=== PATIENT | female | born 1945 | race Caucasian/White ===

== ENCOUNTER 2020-08-06 14:51 | Emergency (ER) | payer OTHER ==
[~2020-08-06] VITALS: Ht 157.5 cm; Wt 61.2 kg
[2020-08-06] MEDS ORDERED: BUPROPION XL150 MG (15:26)
[2020-08-06] MEDS ORDERED: ARICEPT5 MG (15:26)
[2020-08-06] MEDS ORDERED: HORIZANT300 MG (15:26)
[2020-08-06] MEDS ORDERED: CRESTOR40 MG (15:26)
[2020-08-06] MEDS ORDERED: PLAVIX75 MG (15:27)
[2020-08-06] MEDS ORDERED: NAMENDA XR1 EACH (15:27)
[2020-08-06] MEDS ORDERED: LEVOTHYROXINE25 MCG (15:27)
[2020-08-06] MEDS ORDERED: ESCITALOPRA5 MG/5 ML (15:27)
[2020-08-06] MEDS ORDERED: COZAAR50 MG (15:27)
== END 2020-08-06 18:32 | disposition home or self-care (01) ==
LOC: ER 14:51
DX: M79.672 Pain in left foot (principal); R60.0 Localized edema

== ENCOUNTER 2020-10-02 09:17 | Emergency (ER) | payer OTHER ==
[~2020-10-02] VITALS: Ht 157.5 cm; Wt 61.2 kg
[~2020-10-02 09:17] MED LIST: ARICEPT5 MG; BUPROPION XL150 MG; COZAAR50 MG; CRESTOR40 MG; ESCITALOPRA5 MG/5 ML; HORIZANT300 MG; LEVOTHYROXINE25 MCG; NAMENDA XR1 EACH; PLAVIX75 MG
== END 2020-10-02 15:51 | disposition home or self-care (01) ==
LOC: ER 09:17
DX: K57.32 Diverticulitis of large intestine without perforation or abscess without bleeding (principal); R10.84 Generalized abdominal pain; G30.8 Other Alzheimer's disease; F02.80 Dementia in other diseases classified elsewhere, unspecified severity, without behavioral disturbance, psychotic disturbance, mood disturbance, and anxiety

== ENCOUNTER 2021-08-09 07:45 | Outpatient (CLI) | payer OTHER | END 2021-08-09 08:05 | disposition home or self-care (01) | LOC: RAD 07:45 | PROVIDERS: ATTEND Otolaryngology | DX: R13.10 Dysphagia, unspecified (principal); R22.1 Localized swelling, mass and lump, neck ==

== ENCOUNTER 2022-01-13 17:04 | Emergency (ER) | payer OTHER ==
[~2022-01-13] VITALS: Ht 152.4 cm; Wt 59.9 kg
== END 2022-01-13 21:51 | disposition home or self-care (01) ==
LOC: ER 17:04
DX: U07.1 COVID-19 (principal); G30.9 Alzheimer's disease, unspecified; F02.80 Dementia in other diseases classified elsewhere, unspecified severity, without behavioral disturbance, psychotic disturbance, mood disturbance, and anxiety; Z88.6 Allergy status to analgesic agent; Z88.0 Allergy status to penicillin; Z88.2 Allergy status to sulfonamides; I10 Essential (primary) hypertension

== ENCOUNTER 2024-06-06 13:40 | Emergency (ER) | payer OTHER ==
[~2024-06-06] VITALS: Ht 157.5 cm; Wt 65.3 kg
[~2024-06-06 13:40] MED LIST changes: +CLOPIDOGREL BIS75 MG PO; +LEVOTHYROXINE50 MCG PO
[2024-06-06] MEDS ORDERED: METHYLPREDNISOLONE SOD SUCC 125 MG VIAL IV ONE (14:45)
[2024-06-06] MEDS ORDERED: IPRATROPIUM BROMIDE 0.5 MG/2.5 ML AMPUL.NEB IH SCH (14:45)
[2024-06-06] MEDS ORDERED: LEVALBUTEROL HCL 1.25 MG/3 ML SOLUTION IH SCH (14:45)
[2024-06-06] MEDS ORDERED: GUAIFENESIN/DEXTROMETHORPHAN 100MG/10ML BLIST.PACK PO ONE ×2 (14:45→14:53)
[2024-06-06] MEDS ORDERED: IPRATROPIUM BROMIDE 0.5 MG/2.5 ML AMPUL.NEB IH ONE ×2 (14:52→15:57)
[2024-06-06] MEDS ORDERED: LEVALBUTEROL HCL 1.25 MG/3 ML SOLUTION IH ONE ×2 (14:52→15:56)
[2024-06-06] MEDS ORDERED: METHYLPREDNISOLONE SOD SUCC 125 MG VIAL ONE (14:53)
[2024-06-06 15:24] LABS: HEMATOCRIT 41.6 % (36.0-45.00); HEMOGLOBIN 13.9 g/dL (12.0-15.00); MEAN CELL VOLUME 90.3 fL (80.00-100.00); MEAN CORPUSCULAR HEMOGLOBIN 30.1 pg (27.00-32.0); MEAN CORPUSCULAR HGB CONC 33.4 g/dl (32.0-36.0); PLATELET COUNT 226 K/uL (150-450); RED BLOOD COUNT 4.61 M/uL (4.00-6.00); RED CELL DISTRIBUTION WIDTH 13.7 % (11.5-14.5)
[2024-06-06 15:50] LABS: COVID-19 AG NEGATIVE (NEGATIVE)
[2024-06-06 16:03] LABS: ALBUMIN 3.6 gm/dL (3.4-5.0); BILIRUBIN TOTAL 0.4 mg/dL (0.3-1.2); CREATININE SERUM 0.86 mg/dL (0.55-1.02); GFR 63.49; GLOBULINA 4.5 G/DL (2.4-3.5); POTASSIUM 3.56 mEq/L (3.5-5.1); TOTAL PROTEIN 8.1 gm/dL (6.4-8.2)
[2024-06-06 16:04] LABS: INFLUENZA A AG NEGATIVE (NEGATIVE)
[2024-06-06 17:01] LABS: ABG PH 7.434 (7.35-7.45); ABG pCO2 36.1 mmHg (35-45); BASE EXCESS -0.2 mmol/l; BICARBONATE 23.6 mmol/l (23-25); SaO2 94.6 %; Tco2 24.7 mmol/l
[2024-06-06] MEDS ORDERED: IPRATROPIU0.2 MG/1 M IH (17:30)
[2024-06-06] MEDS ORDERED: TUSSIN DM LIQU118 ML PO (17:30)
[2024-06-06] MEDS ORDERED: XOPENEX CO1.25 MG/0. IH (17:30)
[2024-06-06] MEDS ORDERED: ZITHROMAX500 MG PO (17:30)
[2024-06-06 17:34] LABS: allen test SATISFACTORY; mode ROOM AIR; o2 21 %; puncture site RADIAL RIGHT
== END 2024-06-06 18:00 ==
LOC: ER 13:40
PROVIDERS: General Practice
DX: R05.8 Other specified cough (principal); J00 Acute nasopharyngitis [common cold]; Z88.0 Allergy status to penicillin; Z88.2 Allergy status to sulfonamides; Z88.6 Allergy status to analgesic agent; E03.8 Other specified hypothyroidism; G30.8 Other Alzheimer's disease; F02.80 Dementia in other diseases classified elsewhere, unspecified severity, without behavioral disturbance, psychotic disturbance, mood disturbance, and anxiety; Z86.73 Personal history of transient ischemic attack (TIA), and cerebral infarction without residual deficits; J06.9 Acute upper respiratory infection, unspecified; Z20.822 Contact with and (suspected) exposure to COVID-19
CPT/HCPCS: 36415; 71046; 82803; 94640; 96365; 99284; J3490

== ENCOUNTER 2024-07-10 12:10 | Emergency (ER) | payer OTHER ==
[~2024-07-10] VITALS: Ht 157.5 cm; Wt 65.8 kg
[~2024-07-10 12:10] MED LIST changes: +IPRATROPIU0.2 MG/1 M IH; +TUSSIN DM LIQU118 ML PO; +XOPENEX CO1.25 MG/0. IH; +ZITHROMAX500 MG PO
[2024-07-10] MEDS ORDERED: METHYLPREDNISOLONE SOD SUCC 40 MG VIAL IV ONE (13:45)
[2024-07-10] MEDS ORDERED: BENZONATATE 200 MG CAPSULE PO ONE (13:45)
[2024-07-10] MEDS ORDERED: METHYLPREDNISOLONE SOD SUCC 40 MG VIAL ONE (13:54)
[2024-07-10] MEDS ORDERED: WATER FOR INJ.,BACTERIOSTATIC 30 ML VIAL IJ ONE (13:54)
[2024-07-10 15:35] LABS: BASO % 0.7 % (0.1-1.2); EOS # 0.01 (0.04-0.54); EOS % 0.1 % (0.7-7.0); HEMATOCRIT 43.2 % (34.1-44.9); HEMOGLOBIN 14.2 g/dL (11.2-15.7); LYMPH # 1.38 (1.18-3.74); LYMPH % 11.4 % (19.3-53.1); MEAN CORPUSCULAR HEMOGLOBIN 29.8 pg (25.6-32.2); MONO # 0.99 (0.24-0.82); MONO % 8.2 % (4.7-12.5); NEUT # 9.52 (1.56-6.13); PLATELET COUNT 203 K/uL (163-369); RED BLOOD COUNT 4.76 M/uL (3.93-5.22); RED CELL DISTRIBUTION WIDTH 13.3 % (11.6-14.4)
[2024-07-10 15:51] LABS: COVID-19 AG NEGATIVE (NEGATIVE)
[2024-07-10 16:08] LABS: INFLUENZA A AG POSITIVE (NEGATIVE)
[2024-07-10] MEDS ORDERED: BENZONATATE200 M1 PO (16:30)
[2024-07-10] MEDS ORDERED: OSEL75CA PO (16:30)
[2024-07-10] MEDS ORDERED: PEPCID AC20 MG PO (16:30)
== END 2024-07-10 16:36 | disposition home or self-care (01) ==
LOC: ER 14:17
PROVIDERS: General Practice
DX: J10.1 Influenza due to other identified influenza virus with other respiratory manifestations (principal); R05.8 Other specified cough; Z88.0 Allergy status to penicillin; Z88.2 Allergy status to sulfonamides; Z88.6 Allergy status to analgesic agent; G30.8 Other Alzheimer's disease; F02.80 Dementia in other diseases classified elsewhere, unspecified severity, without behavioral disturbance, psychotic disturbance, mood disturbance, and anxiety; Z86.73 Personal history of transient ischemic attack (TIA), and cerebral infarction without residual deficits; Z20.822 Contact with and (suspected) exposure to COVID-19

== ENCOUNTER 2024-07-18 10:08 | Emergency (ER) | payer OTHER ==
[~2024-07-18] VITALS: Ht 154.9 cm; Wt 73.0 kg
[~2024-07-18 10:08] MED LIST changes: +BENZONATATE200 M1 PO; +OSEL75CA PO; +PEPCID AC20 MG PO
[2024-07-18] MEDS ORDERED: GUAIFENESIN 200 MG/10 ML BLIST.PACK PO STA (11:55)
[2024-07-18] MEDS ORDERED: ALBUTEROL SULFATE 3 ML/2.5 MG AMPUL.NEB IH STA (11:55)
[2024-07-18] MEDS ORDERED: BUDESONIDE 0.5 MG/2 ML AMPUL.NEB IH STA (11:55)
[2024-07-18] MEDS ORDERED: GUAIFENESIN 200 MG/10 ML BLIST.PACK PO ONE (12:01)
[2024-07-18] MEDS ORDERED: BUDESONIDE 0.5 MG/2 ML AMPUL.NEB IH ONE (12:25)
[2024-07-18] MEDS ORDERED: ALBUTEROL SULFATE 3 ML/2.5 MG AMPUL.NEB IH ONE ×2 (12:25→15:49)
[2024-07-18 12:42] LABS: ABG PH 7.483 (7.35-7.45); ABG PO2 84.1 mmHg (80-100); ABG pCO2 33.9 mmHg (35-45); BASE EXCESS 1.9 mmol/l; BICARBONATE 24.8 mmol/l (23-25); SaO2 97.1 %; Tco2 25.9 mmol/l
[2024-07-18 12:46] LABS: allen test SATISFACTORY; mode ROOM AIR; puncture site RADIAL RIGHT
[2024-07-18 12:47] LABS: o2 21 %
[2024-07-18 12:49] LABS: BASO % 0.6 % (0.1-1.2); EOS % 1.2 % (0.7-7.0); HEMATOCRIT 38.7 % (34.1-44.9); HEMOGLOBIN 12.8 g/dL (11.2-15.7); LYMPH # 2.78 (1.18-3.74); LYMPH % 32.4 % (19.3-53.1); MEAN CORPUSCULAR HEMOGLOBIN 29.3 pg (25.6-32.2); MONO # 0.61 (0.24-0.82); MONO % 7.1 % (4.7-12.5); NEUT # 4.99 (1.56-6.13); PLATELET COUNT 238 K/uL (163-369); RED BLOOD COUNT 4.37 M/uL (3.93-5.22)
[2024-07-18 13:02] LABS: CALCIUM 9.4 mg/dL (8.5-10.1); CREATININE SERUM 1.19 mg/dL (0.55-1.02); GFR 43.53; POTASSIUM 3.08 mEq/L (3.5-5.1)
[2024-07-18] MEDS ORDERED: ALBUTEROL SULFATE 3 ML/2.5 MG AMPUL.NEB IH SCH (14:15)
[2024-07-18] MEDS ORDERED: ALBUTEROL2.5 MG/3 M IH (15:39)
[2024-07-18] MEDS ORDERED: BUDESONIDE0.5 MG/2 M IH (15:39)
== END 2024-07-18 16:19 | disposition home or self-care (01) ==
LOC: ER 10:08
PROVIDERS: Emergency Medicine
DX: R05.9 Cough, unspecified (principal); Z87.09 Personal history of other diseases of the respiratory system; Z88.0 Allergy status to penicillin; Z88.2 Allergy status to sulfonamides; Z88.6 Allergy status to analgesic agent

== ENCOUNTER 2024-12-03 13:12 | Emergency (ER) | payer OTHER ==
[~2024-12-03] VITALS: Ht 160 cm; Wt 72.6 kg
[~2024-12-03 13:12] MED LIST changes: +ALBUTEROL2.5 MG/3 M IH; +BUDESONIDE0.5 MG/2 M IH
[2024-12-03] MEDS ORDERED: METHYLPREDNISOLONE SOD SUCC 40 MG VIAL IV ONE (14:00)
[2024-12-03] MEDS ORDERED: BENZONATATE 200 MG CAPSULE PO ONE (14:00)
[2024-12-03] MEDS ORDERED: IPRATROPIUM BROMIDE 0.5 MG/2.5 ML AMPUL.NEB IH SCH (14:00)
[2024-12-03] MEDS ORDERED: CETIRIZINE HCL 10 MG TABLET PO ONE (14:00)
[2024-12-03] MEDS ORDERED: CETIRIZINE HCL 5MG/5ML BLIST.PACK PO ONE (14:14)
[2024-12-03] MEDS ORDERED: METHYLPREDNISOLONE SOD SUCC 40 MG VIAL ONE (14:14)
[2024-12-03 14:57] LABS: BASO % 1.1 % (0.1-1.2); EOS # 0.39 (0.04-0.54); EOS % 4.0 % (0.7-7.0); LYMPH # 3.13 (1.18-3.74); LYMPH % 32.0 % (19.3-53.1); MEAN PLATELET VOLUME 10.90 fl (9.4-12.4); MONO # 0.66 (0.24-0.82); MONO % 6.7 % (4.7-12.5); NEUT # 5.46 (1.56-6.13); NEUT % 55.9 % (34.0-71.1); RED CELL DISTRIBUTION WIDTH 12.9 % (11.6-14.4)
[2024-12-03 15:17] LABS: COVID-19 AG NEGATIVE (NEGATIVE)
[2024-12-03 15:40] LABS: ALT/SGPT 21.0 U/L (12-78); AST/SGOT 18.0 U/L (15-37); BILIRUBIN TOTAL 0.44 mg/dL (0.3-1.2); BUN CREA RATIO 30.0 (7.0-25.0); CKMB 1.6 NG/ML (0.5-3.6); CREATININE SERUM 0.87 mg/dL (0.55-1.02); GFR 62.49; GLOBULINA 3.4 G/DL (2.4-3.5); GLUCOSE FASTING 112.0 mg/dL (65-100); OSMOLALITY SERUM 290.0 MOSM/KG (275-295)
[2024-12-03 15:47] LABS: ERYTHROCYTE SEDIMENTATION RATE 48 mm/hr (0-30)
[2024-12-03] MEDS ORDERED: IPRATROPIUM BROMIDE 0.5 MG/2.5 ML AMPUL.NEB IH ONE (16:06)
[2024-12-03] MEDS ORDERED: ZITHROMAX TRI-500 MG PO (16:44)
[2024-12-03] MEDS ORDERED: BENZONATATE200 M1 PO (16:44)
[2024-12-03] MEDS ORDERED: IPRATROPIU0.2 MG/1 M IH (16:44)
[2024-12-03 16:55] VITALS: BP 131/75; O2SAT 96
== END 2024-12-03 16:55 | disposition home or self-care (01) ==
LOC: ER 13:12
PROVIDERS: Student in an Organized Health Care Education/Training Program
DX: J20.9 Acute bronchitis, unspecified (principal); E03.8 Other specified hypothyroidism; Z20.822 Contact with and (suspected) exposure to COVID-19; Z88.0 Allergy status to penicillin; Z88.2 Allergy status to sulfonamides; Z88.6 Allergy status to analgesic agent

== ENCOUNTER 2025-01-13 15:02 | Emergency (ER) | payer OTHER ==
[~2025-01-13] VITALS: Ht 157.5 cm; Wt 63.5 kg
[~2025-01-13 15:02] MED LIST changes: +ZITHROMAX TRI-500 MG PO
[2025-01-13 16:39] VITALS: BP 129/60; O2SAT 94
[2025-01-13 20:36] LABS: BASO % 1.2 % (0.1-1.2); EOS # 0.55 (0.04-0.54); EOS % 6.1 % (0.7-7.0); LYMPH # 2.32 (1.18-3.74); LYMPH % 25.9 % (19.3-53.1); MEAN PLATELET VOLUME 11.10 fl (9.4-12.4); MONO # 0.90 (0.24-0.82); MONO % 10.1 % (4.7-12.5); NEUT # 5.03 (1.56-6.13); NEUT % 56.3 % (34.0-71.1); RED CELL DISTRIBUTION WIDTH 13.5 % (11.6-14.4)
[2025-01-13 21:01] LABS: ALT/SGPT 20.0 U/L (12-78); AST/SGOT 20.0 U/L (15-37); BILIRUBIN TOTAL 0.5 mg/dL (0.3-1.2); BUN CREA RATIO 26.0 (7.0-25.0); CREATININE SERUM 0.81 mg/dL (0.55-1.02); GFR 67.86; GLOBULINA 3.7 G/DL (2.4-3.5); GLUCOSE FASTING 110.0 mg/dL (65-100); OSMOLALITY SERUM 281.0 MOSM/KG (275-295)
[2025-01-13 21:30] LABS: COVID-19 AG NEGATIVE (NEGATIVE)
[2025-01-13] MEDS ORDERED: ACETAMINOPHEN500 M1 PO (21:57)
[2025-01-13] MEDS ORDERED: GILTUSS COUGH-118 M1 PO (21:57)
[2025-01-13] MEDS ORDERED: BENZONATATE 100 MG CAPSULE PO ONE (22:00)
== END 2025-01-13 22:52 | disposition home or self-care (01) ==
LOC: ER 15:02
PROVIDERS: Preventive Medicine Public Health & General Preventive Medicine
DX: B34.9 Viral infection, unspecified (principal); Z88.0 Allergy status to penicillin; Z88.6 Allergy status to analgesic agent; Z88.2 Allergy status to sulfonamides; Z20.822 Contact with and (suspected) exposure to COVID-19